=== PATIENT | male | born 1980 | race Caucasian/White ===

== ENCOUNTER 2016-10-17 18:58 | Emergency (ER) | payer OTHER ==
[~2016-10-17] VITALS: Ht 190.5 cm; Wt 172.4 kg
[~2016-10-17 18:58] MED LIST: BUSPIRONE HCL15 M1 PO; PANTOPRAZOLE SO20 M1 PO; PREDNISONE20 M1 PO; PROAIR HFA8.5 GM INH; VISTARIL25 M1 PO
--- NOTE | 2016-10-17 19:50 | ED CARDIAC/CP/PALPITATIONS ---
History of Present Illness General Chief Complaint: Palpitations Stated Complaint: PALPS Source: patient Exam Limitations: no limitations Vital Signs & Intake/Output Vital Signs & Intake/Output Vital Signs Date Time Temp Pulse Resp B/P Pulse O2 O2 Flow FiO2 Ox Delivery Rate 10/18 2055 98 Room Air 10/17 2052 98.0 89 16 152/91 98 Room Air 10/179 171/88 10/17 1904 98.6 103 16 97 ED Intake and Output 10/18 0000 10/17 1200 Intake Total Output Total Balance Patient 380 lb Weight Allergies Coded Allergies: poison kevin extract (SYSTEMIC RASH AND HIVES 10/17/16) Reconcile Medications Albuterol Sulfate (Proair Hfa) 8.5 GM HFA.AER.AD 2 PUF INH Q4-6 PRN PRN BREATHING PROBLEMS (Reported) Aspirin (Ecotrin*) 81 MG TABLET.DR 1 TAB PO DAILY HEART/BLOOD (Reported) Buspirone HCl 15 MG TABLET 1 TAB PO QPM MENTAL HEALTH (Reported) Fluticasone Propionate 50 MCG/ACTUATION SPRAY.SUSP 2 SPRAY NASB DAILY ALLERGIES (Reported) Ibuprofen (Advil Liqui-Gels) 200 MG CAPSULE 1 CAP PO PRN PAIN/INFLAMMATION ( Reported) Lactobacillus Acidophilus (Probiotic) (Unknown Strength) CAPSULE (Unknown Dose ) PO DAILY PROBIOTIC (Reported) Multivitamin (Multi-Day Vitamins) 1 EACH TABLET 1 TAB PO DAILY SUPPLEMENT ( Reported) Ranitidine HCl (Zantac) 150 MG TABLET 1 TAB PO PRN GI (Reported) Triage Note: PT STATES HE HAS HAD INTERMITTANT PALPATATIONS SINCE YESTERDAY. PT DENIES CHEST PAIN OR DIAPHORESIS. PT STATSE HE JUST FELT THE PALPATATIONS. Triage Nurses Notes Reviewed? yes Onset: Abrupt Duration: minute(s): Timing: recent history Quality/Severity: mild Location: central Radiation: no radiation Activities at Onset: "I was at [employer] walking... but I get palpitations a lot." Prior Chest Pain/Card Workup: negative stress test and echo 2 years ago Modifying Factors: Improves With: rest. Worsens With: eating. HPI: 35 yo gentleman, h/o anxiety, obesity, and gerd. presents with palpitations. He notes that he was at [employer] walking, "and I felt like a butterfly in my chest ... my heart was making extra beats it felt like." He notes that the episode lasted a few seconds, and was self resolved. He never had chest pain, shortness of breath, syncopal symptoms. He is otherwise well . He notes that he has had similar episodes in the past without the other symptoms as noted. Past History Travel History Traveled to [place] past 21 day No Medical History Any Pertinent Medical History? 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 No Review of Systems Review of Systems Constitutional: Reports: no symptoms. EENTM: Reports: no symptoms. Respiratory: Reports: no symptoms. Cardiovascular: Reports: no symptoms. GI: Reports: no symptoms. Genitourinary: Reports: no symptoms. Musculoskeletal: Reports: no symptoms. Skin: Reports: no symptoms. Neurological/Psychological: Reports: no symptoms. Hematologic/Endocrine: Reports: no symptoms. Immunologic/Allergic: Reports: no symptoms. All Other Systems: Reviewed and Negative Physical Exam Physical Exam General Appearance: well developed/nourished, no apparent distress Head: atraumatic, normal appearance Eyes: Bilateral: normal appearance. Ears, Nose, Throat: normal pharynx, normal ENT inspection Neck: normal inspection, supple, full range of motion Respiratory: normal breath sounds, chest non-tender, no respiratory distress, quiet respiration, lungs clear Cardiovascular: regular rate/rhythm Gastrointestinal: normal bowel sounds, soft, non-tender, no organomegaly Back: normal inspection, normal range of motion Extremities: normal inspection, normal capillary refill, normal range of motion, no edema Neurologic/Psych: no motor/sensory deficits, awake, alert, oriented x 3 Skin: intact, normal color, warm/dry Core Measures ACS in differential dx? No Severe Sepsis Present: No Septic Shock Present: No Progress Differential Diagnosis: pvc's vs pac's vs afib vs other... i doubt mi/acs Plan of Care: Orders Procedure Date/time Status TROPONIN LEVEL 10/17 1929 Complete D-DIMER 10/17 1929 Complete COMPREHENSIVE METABOLIC PANEL 10/17 1929 Complete CBC WITHOUT DIFFERENTIAL 10/17 1929 Complete EKG 10/17 1858 Active Laboratory Tests 10/17/16 1950: Anion Gap 11, Estimated GFR > 60, BUN/Creatinine Ratio 12.9, Glucose 97, Calcium 9.2, Total Bilirubin 0.4, AST 19, ALT 41, Alkaline Phosphatase 77, Troponin I < 0.01, Total Protein 7.5, Albumin 3.7, Globulin 3.8, Albumin/Globulin Ratio 1.0 L, D-Dimer < 200, CBC w Diff NO MAN DIFF REQ, RBC 5.16, MCV 83.7, MCH 27.7, RDW 14.9 H, MPV 7.4, Gran % 65.9, Lymphocytes % 22.9, Monocytes % 9.4 H, Eosinophils % 1.3, Basophils % 0.5, Absolute Granulocytes 7.0 H, Absolute Lymphocytes 2.4, Absolute Monocytes 1.0 H, Absolute Eosinophils 0.1, Absolute Basophils 0.1, PUBS MCHC 33.1 Diagnostic Imaging: Viewed by Me: Radiology Read. Discussed w/RAD: Radiology Read. CXR Impression: no acute abnormality, no infiltrates, normal size heart, normal mediastinum Initial ED EKG: normal axis, normal intervals, normal p-waves, normal QRS complex, normal sinus rhythm Comments: PATIENT: SADIE FIELDS PRESENT AGE: 35 PATIENT ACCOUNT NO: [id number] : 82 LOCATION: [facility] ORDERING PHYSICIAN: MARICARMEN MEDINA MD SERVICE DATE: 10/17/16 EXAM TYPE: RAD - XRY-PORTABLE CHEST XRAY EXAMINATION: CHEST 1 VIEW CLINICAL INFORMATION: Chest palpitations. COMPARISON: None. TECHNIQUE: An AP view of the chest is provided. FINDINGS: The cardiac silhouette is not enlarged. The mediastinal and hilar contours are unremarkable. There are neither pleural effusions nor pneumothoraces. There are no consolidations. The osseous structures are unremarkable. IMPRESSION: No evidence for acute disease. DICTATED BY: EDMUND BROWN MD DATE/TIME DICTATED:10/17/162019 GRAPPLE OPERATOR:ANH DATE/TIME TRANSCRIBED:10/17/162019 CONFIDENTIAL, DO NOT COPY WITHOUT APPROPRIATE AUTHORIZATION. <Electronically signed in Other Vendor System> SIGNED BY: EDMUND BROWN MD 10/17/162023 Departure Departure Disposition: HOME OR SELF CARE Condition: Stable Clinical Impression Primary Impression: Palpitations Referrals: GA GILLILAND MD (PCP/Family) Departure Forms: Customer Survey General Discharge Information Comments 10/17/16, 20:30pm... discussed at length with patient... pt referred to cards. no chest pain, benign eval. asymptomatic in ED. 10/17/16, 21:00... trop neg... pt safe for discharge. Critical Care Note Critical Care Note Critical Care Time: non-applicable
[2016-10-17 19:57] LABS: ABSOLUTE BASOPHIL COUNT 0.1 /CUMM (0.0-0.2); ABSOLUTE EOSINOPHIL COUNT 0.1 /CUMM (0.0-0.7); ABSOLUTE LYMPH COUNT 2.4 /CUMM (1.2-3.4); BASOPHIL % 0.5 % (0.0-2.0); EOSINOPHIL % 1.3 % (0-5); GRANULOCYTE % 65.9 % (42.2-75.2); HEMATOCRIT 43.2 % (42-52); MEAN CORPUSCULAR HGB 27.7 PG (27.0-31.0); MEAN CORPUSCULAR HGB CONC 33.1 G/DL (33.0-37.0); MEAN CORPUSCULAR VOLUME 83.7 FL (80.0-94.0); MEAN PLATELET VOLUME 7.4 FL (7.4-10.4); PLATELET COUNT 319 /CUMM (130-400); RBC DISTRIBUTION WIDTH 14.9 % (11.5-14.5); RED BLOOD CELL CT 5.16 /CUMM (4.70-6.10); WHITE BLOOD CELL COUNT 10.7 /CUMM (4.8-10.8)
--- NOTE | 2016-10-17 20:24 | RADIOLOGY REPORT ---
EXAMINATION: CHEST 1 VIEW CLINICAL INFORMATION: Chest palpitations. COMPARISON: None. TECHNIQUE: An AP view of the chest is provided. FINDINGS: The cardiac silhouette is not enlarged. The mediastinal and hilar contours are unremarkable. There are neither pleural effusions nor pneumothoraces. There are no consolidations. The osseous structures are unremarkable. IMPRESSION: No evidence for acute disease.
[2016-10-17] MEDS ORDERED: ASPIRIN EC81 M1 PO (20:25)
[2016-10-17] MEDS ORDERED: ZANTAC150 M1 PO (20:25)
[2016-10-17] MEDS ORDERED: FLUTICASONE PRO16 GM NASB (20:25)
[2016-10-17] MEDS ORDERED: ADVIL LIQUI-GE200 M1 PO (20:26)
[2016-10-17] MEDS ORDERED: MULTI-DAY VITA1 EACH PO (20:27)
[2016-10-17] MEDS ORDERED: PROBIOTIC1 EACH PO (20:28)
[2016-10-17 20:53] VITALS: BP 152/91
== END 2016-10-17 21:04 ==
LOC: ERH 18:58
PROVIDERS: Pediatrics
DX: R00.2 Palpitations (principal)
CPT/HCPCS: 93005; 93010